=== PATIENT | female | born 1960 | race Caucasian/White ===

== ENCOUNTER 2017-02-27 10:11 | Inpatient (IN) | payer OTHER ==
[~2017-02-27] VITALS: Ht 165.1 cm; Wt 104.3 kg
[~2017-02-27 10:11] MED LIST: ACET-2863 PO; ALPR1TAB2 PO; BUS5 PO; CLOP75TA PO; IBUP-2213 PO; ISOS10TA9 PO; LISI10TA11 PO; SERT100T PO; SIMV40TA1 PO; SYN.05 PO
[2017-02-27 10:14] VITALS: BP 135/75
--- NOTE | 2017-02-27 10:35 | NUR ---
PT WHEELCHAIR ASSISTED TO BED 4 AT THIS TIME.
[2017-02-27] MEDS ORDERED: ASPIRIN 81 MG TAB.CHEW PO ONE (10:40)
[2017-02-27] MEDS ORDERED: NACL 0.9% 1,000 ML IV ONE (10:40)
--- NOTE | 2017-02-27 10:40 | NUR ---
56/F PRESENT TO ER C/O CHEST PAIN @ 0300 TODAY. PAIN 10/10 LEFT SIDED RADIATING TO BACK. PT STATES SHE HAD PR 2 MONTHS AGO.PATIENT HAS NAUSEA BUT DENIES V/D; SKIN IS PINK/WARM/DRY; AAOX4 WITH EVEN AND STEADY GAIT; LUNGS CLEAR BL; HR EVEN AND REGULAR; PT DENIES ANY FEVER, SOB, OR COUGH AT THIS TIME; VSS; PATIENT POSITIONED FOR COMFORT; HOB ELEVATED; BEDRAILS UP X2; BED DOWN. ER MD MADE AWARE OF PT STATUS. WILL CONTINUE TO MONITOR.
--- NOTE | 2017-02-27 10:40 | NUR ---
Note undone in EDM - 02/27/17 at 1402 by MEDPA 56/F PRESENT TO ER C/O CHEST PAIN @ 0300 TODAY. PAIN 10/10 LEFT SIDED RADIATING TO BACK. PT STATES SHE HAD TN 2 MONTHS AGO.PATIENT HAS NAUSEA BUT DENIES V/D; SKIN IS PINK/WARM/DRY; AAOX4 WITH EVEN AND STEADY GAIT; LUNGS CLEAR BL; HR EVEN AND REGULAR; PT DENIES ANY FEVER, CP, SOB, OR COUGH AT THIS TIME; VSS; PATIENT POSITIONED FOR COMFORT; HOB ELEVATED; BEDRAILS UP X2; BED DOWN. ER MD MADE AWARE OF PT STATUS. WILL CONTINUE TO MONITOR.
--- NOTE | 2017-02-27 10:40 | NUR ---
PT NOTED W/ SMALL BRUISE TO LEFT LOWER EXTREMITY; STATES FROM " YARD WORK"
--- NOTE | 2017-02-27 10:46 | NUR ---
XRAY AT BEDSIDE.
[2017-02-27] MEDS ORDERED: NITROGLYCERIN 2% 1 GM PKT TP ONE (10:50)
[2017-02-27] MEDS ORDERED: MORPHINE SULFATE 2 MG/ML SYR IVP ONE ×3 (11:05→13:25)
[2017-02-27] MEDS ORDERED: KETOROLAC 30 MG/ML VIAL IVP ONE (11:05)
[2017-02-27] MEDS ORDERED: PANTOPRAZOLE 40 MG INJ VIAL IVP ONE (11:05)
[2017-02-27 11:19] LABS: BASOPHILS # (AUTO) 0.1 K/uL (0.00-0.22); BASOPHILS % (AUTO) 1.7 % (0.0-2.0); EOSINOPHILS # (AUTO) 0.2 K/uL (0-0.4); EOSINOPHILS % (AUTO) 1.9 % (0.0-4.0); HEMATOCRIT 39.5 % (36-48); HEMOGLOBIN 12.8 g/dL (12.0-16.0); LYMPHOCYTES # (AUTO) 1.7 K/uL (2.5-16.5); LYMPHOCYTES % (AUTO) 21.5 % (20.5-51.1); MEAN CORPUSCULAR HEMOGLOBIN 30 pg (27-31); MEAN CORPUSCULAR HGB CONC 32 g/dL (33-37); MEAN CORPUSCULAR VOLUME 92 fL (80-94); MONOCYTES # (AUTO) 0.6 K/uL (0.8-1.0); MONOCYTES % (AUTO) 7.5 % (1.7-9.3); NEUTROPHILS # (AUTO) 5.4 K/uL (1.8-7.7); NEUTROPHILS % (AUTO) 67.4 % (42.2-75.2); PLATELET COUNT (AUTO) 227 K/uL (140-450); RED BLOOD CELL COUNT(AUTO) 4.28 MIL/uL (4.20-5.40); RED CELL DISTRIBUTION WIDTH 13.3 % (11.6-13.7)
[2017-02-27] MEDS ORDERED: METOPROLOL 25 MG TAB PO ONE (11:20)
[2017-02-27 11:37] LABS: ANION GAP 10.5 (8-16); CALCIUM 8.2 mg/dL (8.5-10.1); CARBON DIOXIDE 30.1 mmol/L (21-32); CREATININE 0.7 mg/dL (0.6-1.3); POTASSIUM 4.6 mmol/L (3.5-5.1)
[2017-02-27 11:38] LABS: INR 1.1 (0.8-1.2); PARTIAL THROMBOPLASTIN TIME 22.5 secs (22-35.6); PROTHROMBIN TIME 10.5 secs (10.8-13.4)
[2017-02-27 11:42] LABS: ALBUMIN 3.7 g/dL (3.4-5.0); TOTAL BILIRUBIN 0.4 mg/dL (0.0-1.0); TOTAL PROTEIN, SERUM 7.1 g/dL (6.4-8.2)
[2017-02-27] MEDS ORDERED: MORPHINE SULFATE 2 MG/ML SYR ONE (11:56)
[2017-02-27] MEDS ORDERED: ENOXAPARIN 100 MG/ML SYR SUBQ ONE (12:05)
[2017-02-27] MEDS ORDERED: NITROGLYCERIN 0.4 MG TAB SL PRN (12:30)
[2017-02-27] MEDS ORDERED: ONDANSETRON 4 MG/2 ML VIAL IVP PRN (12:30)
[2017-02-27] MEDS ORDERED: ZOLPIDEM 5 MG TAB PO PRN (12:30)
[2017-02-27] MEDS ORDERED: LOVENOX 1MG/KG Q12H SUBQ SCH (12:30)
[2017-02-27] MEDS ORDERED: KETOROLAC 30 MG/ML VIAL IVP PRN (12:30)
[2017-02-27] MEDS ORDERED: ACETAMINOPHEN 325 MG TAB PO PRN (12:30)
[2017-02-27] MEDS ORDERED: ATORVASTATIN 80 MG TAB PO ONE (12:50)
--- NOTE | 2017-02-27 12:58 | NUR ---
CALLED PHARMACY FOR LIPITOR ORDERED PER ER MD DR. ELAINE; PHARMACY TO BRING MEDICATION TO ER; PT APPEARS TO BE RESTING COMFORTABLY IN BED, RR EVEN/UNLABORED, WILL CONTINUE TO MONITOR.
--- NOTE | 2017-02-27 13:59 | NUR ---
PT ON ICU HOLD; UNABLE TO CALL REPORT NO BED AVAILABLE; PT APPEARS TO BE RESTING COMFORTABLY IN BED AT THIS TIME; RR EVEN/UNLABORED; WILL CONTINUE TO MONITOR.
--- NOTE | 2017-02-27 15:00 | NUR ---
LEFT MESSAGE AT [facility] FOR CARDIAC DIET FOOD TRAY FOR PT; PT STATES HUNGRY. ER MD DR. ELAINE NOTIFIED. WILL CONTINUE TO MONITOR AND FOLLOW UP.
--- NOTE | 2017-02-27 15:11 | NUR ---
Lynda billings in [facility] - 02/27/17 at 1511 by MARY XRAY AT BEDSIDE.
--- NOTE | 2017-02-27 15:20 | NUR ---
CARDIAC FOOD TRAY DIET PROVIDED TO PT AT THIS TIME.
--- NOTE | 2017-02-27 16:00 | NUR ---
Patient appears to be resting comfortably in bed. Vital Signs within normal limits. Respirations even and unlabored. WILL CONTINUE TO MONITOR.
--- NOTE | 2017-02-27 16:14 | NUR ---
DR. MAY EVALUATING PT AT BEDSIDE.
--- NOTE | 2017-02-27 16:51 | NUR ---
Patient will be admitted to care of DR. MAY . Admited to ICU. Will go to room ICU 4. Belongings list completed. DANG DURAN CONTINUING CARE OF PT IN ICU UNTIL PRIVATE ADVISOR ARRIVES FOR REPORT AND TRANSFER OF CARE OF PT. WILL CONTINUE TO MONITOR PT IN ICU UNTIL ICU NURSE ARRIVES.
--- NOTE | 2017-02-27 17:05 | NUR ---
PT TRANSFERRED TO BED ICU 4; PLACED ON MONITOR, CALL LIGHT IN REACH, POSITIONED FOR COMFORT; VSS AT THIS TIME; WILL CONTINUE TO MONITOR.
--- NOTE | 2017-02-27 17:36 | NUR ---
WATER AND BLANKET PROVIDED TO PT FOR COMFORT; VSS AT THIS TIME; WILL CONTINUE TO MONITOR.
--- NOTE | 2017-02-27 18:49 | NUR ---
REPORT GIVEN TO DANG LOU; TRANSFER OF CARE OF PT TO ICU 4 AT THIS TIME.
[2017-02-27 18:50] VITALS: BP 168/68
--- NOTE | 2017-02-27 18:50 | NUR ---
ADMITTED FROM ER THIS 56 YR. OLD WHITE FEMALE PER [facility]. BY ER NURSE WITH CC OF CHEST PAINS. AWAKE,ALERT, IV ON RT AC 0.9 NS AT 100 ML/HR. DENIES ANY SOB. IN SR WITHOUT ECTOPICS.
--- NOTE | 2017-02-27 19:00 | NUR ---
C/O SHARP PAINS OVER STERNUM, MID CHEST AND BELOW BREAST AREAS. 10/10 SCALE. REVIEWED MEDS ORDERED FOR HER BY DR. MAY. GOT UPSET. STATES SHE WANTS TO SIGN HERSELF OUT. UPSET THAT DR. MAY ONLY ORDERED 1MG. OF MORPHINE. STATES 1 MG DOES NOT HELP HER. EXPLAINED TO PT. THE IMPORTANCE OF STAYING IN THE HOSPITAL FOR HER CONDITION AND THAT I WILL CALL THE DR. RE: HER CONCERNS.
--- NOTE | 2017-02-27 19:15 | NUR ---
SPOKE TO DR. MISHAR ( BEHAVIORAL THERAPIST FOR DR. MAY ) RE: PT'S CONCERNS. PER DR. MISHRA HE IS NOT GOING TO CHANGE THE MED. ORDERS. HE IS ALSO AWARE THAT PT. WANTS TO SIGN AMA.
--- NOTE | 2017-02-27 19:30 | NUR ---
REPORT GIVEN TO DANG MENDOZA.
[2017-02-27 19:56] LABS: CREATINE KINASE MB 1.9 ng/mL (0-3.6)
[2017-02-27 20:00] VITALS: BP 166/92
--- NOTE | 2017-02-27 20:00 | NUR ---
RECEIVED PT IS AWAKE , ALERT SITING IN THE BED, EXPLAIN TO PT DOCTOR HE DO NOT WANT CHANGE PAIN MEDS DOSE YOU ASKING , IF YOU WANT IT , I WILL GIVE ORDER, WILL GIVE AFTER IV SITE FIXED IT, PT IS EXCEPT,C/O CHEST PAIN #10,MONITOR SR HR 66 RA O2 SAT 94%, IV AT RT AC ANGIO # 22 CHECK BLOOD RETURN , FLUSH WELL, TAPE FOR SECURITY., HAD MULTIPLE BRUISE ABDOMEN , LOWER LEG ,PT TOLD FOR BLOOD THIN MEDS
[2017-02-27] MEDS: METOPROLOL 25 MG TAB PO SCH (20:32)
[2017-02-27] MEDS: MORPHINE SULFATE 2 MG/ML SYR IVP PRN ×2 (20:34→23:27)
--- NOTE | 2017-02-27 20:35 | NUR ---
MORPHINE 1 MG IVP GIVEN ORDER
[2017-02-27] MEDS ORDERED: SIMVASTATIN 20 MG TAB PO SCH (21:00)
--- NOTE | 2017-02-27 21:13 | NUR ---
PLACED PT ON 2LNC WITH HUMIDIFICATION. PT STATES SHE HAS SLEEP APNEA. SATS ON RA WERE 90%.
[2017-02-27] MEDS: LORazepam 1 MG TAB PO PRN (21:17)
[2017-02-27 22:00] VITALS: BP 123/65
--- NOTE | 2017-02-27 22:00 | NUR ---
SLEPT FOR SHORT PERIOD AFTER MEDS PAIN DOWN 10 TO 2, TO COMMODE AT BEDSIDE VOIDED,C/O COULD NOT BREATH ,RT GAPPLIED O2 2 L/CN SAT 98 %, NO SOB NOTES
[2017-02-27] MEDS ORDERED: ENOXAPARIN 60 MG/0.6 ML SYR SUBQ ONE (23:51)
[2017-02-27] MEDS ORDERED: ENOXAPARIN 40 MG/0.4 ML SYR SUBQ ONE (23:52)
[2017-02-28] VITALS: BP 138/95
[2017-02-28] MEDS ORDERED: ENOXAPARIN 100 MG/ML SYR SUBQ SCH
--- NOTE | 2017-02-28 | NUR ---
SLEPT AFTER MORPHINE FOR PAIN SCALE 8 ,LOVENOX DOSE MIDNIGHT OKAY TO GIVEN BUT HOLD DOSE AM DR MARCELINO ORDER,MONITOR SR HR 67, NO DISTRESS
--- NOTE | 2017-02-28 01:56 | NUR ---
SLEPT SHORT TIME AFTER MEDS, AWAKE ASKING SOME THING TO EAT ,C/O HUNGRY CRACKLE , JUICE, SERVED , NO N/V NOTES
[2017-02-28 02:00] VITALS: BP 155/86
[2017-02-28] MEDS: LORazepam 1 MG TAB PO PRN ×2 (02:42→07:43)
--- NOTE | 2017-02-28 02:58 | NUR ---
AWAKE, WANT RESTLESS WANT SOMETHING FOR SLEEP AGAIN, ATIVAN GIVEN AGAIN ORDER.
[2017-02-28 04:00] VITALS: BP 135/85
[2017-02-28 05:10] LABS: BASOPHILS # (AUTO) 0.1 K/uL (0.00-0.22); BASOPHILS % (AUTO) 1.4 % (0.0-2.0); EOSINOPHILS # (AUTO) 0.3 K/uL (0-0.4); EOSINOPHILS % (AUTO) 4.1 % (0.0-4.0); HEMATOCRIT 35.4 % (36-48); HEMOGLOBIN 11.4 g/dL (12.0-16.0); LYMPHOCYTES # (AUTO) 2.1 K/uL (2.5-16.5); LYMPHOCYTES % (AUTO) 32.4 % (20.5-51.1); MEAN CORPUSCULAR HEMOGLOBIN 30 pg (27-31); MEAN CORPUSCULAR HGB CONC 32 g/dL (33-37); MEAN CORPUSCULAR VOLUME 92 fL (80-94); MONOCYTES # (AUTO) 0.5 K/uL (0.8-1.0); MONOCYTES % (AUTO) 7.1 % (1.7-9.3); NEUTROPHILS # (AUTO) 3.5 K/uL (1.8-7.7); PLATELET COUNT (AUTO) 194 K/uL (140-450); RED BLOOD CELL COUNT(AUTO) 3.84 MIL/uL (4.20-5.40); RED CELL DISTRIBUTION WIDTH 13.3 % (11.6-13.7); WHITE BLOOD COUNT (AUTO) 6.5 K/uL (4.8-10.8)
[2017-02-28 05:46] LABS: ANION GAP 9.2 (8-16); CALCIUM 7.6 mg/dL (8.5-10.1); CARBON DIOXIDE 30.1 mmol/L (21-32); CREATININE 0.8 mg/dL (0.6-1.3); POTASSIUM 4.3 mmol/L (3.5-5.1)
[2017-02-28 06:00] VITALS: BP 176/94
--- NOTE | 2017-02-28 06:59 | NUR ---
C/O BACK ,CHEST PAIN TORADOL GIVEN ,C/O DID NOT HELP, BUT MORPHINE ORDER X2 DOSE ONLY, MONITOR SR HR 66,UP TO COMMODE AT BED SIDE ,NO DISTRESS.
--- NOTE | 2017-02-28 07:15 | NUR ---
RECEIVED REPORT FROM DANG MENDOZA. PT SEEN AT BEDSIDE; AAOX4. ON ROOM AIR WITH NO S/S SOB. PT IS ON EXPERIMENTAL MECHANIC ELECTRICAL RUNNING SINUS RHYTHM TO SINUS JULIET. PT C/O CHEST PAIN, WAS MEDICATED WITH TORADOL AT 0642. PT HAS LEFT AC 22G IV RUNNING IVF AT [facility]. BRUISE NOTED ON ABD. PT IS ON BLOOD THINNERS AND RECEIVED LOVENOX ON ABD DURING THE NIGHT. PT SKIN IS INTACT; AMBULATORY WITH BSC AT BEDSIDE. SAFETY MEASURES CHECKED, CALL LIGHT LEFT AT BEDSIDE. WILL CONTINUE TO MONITOR.
--- NOTE | 2017-02-28 07:30 | NUR ---
PATIENT HAS BEEN SCREENED AND CATEGORIZED MODERATE NUTRITION RISK. PATIENT WILL BE SEEN WITHIN 3-5 DAYS OF ADMISSION. 03/02/17-03/04/[address]
--- NOTE | 2017-02-28 07:30 | NUR ---
RECEIVED CALL FROM DR. MARCELINO. UPDATED MD ON PATIENT CONDITION. PT WILL BE GOING TO [facility] FOR ANGIOGRAM AT 9:30AM TODAY. HOLD LOVENOX AND LOPRESSOR FOR TODAY. GIVE COZAAR; OK TO GIVE PLAVIX AND ASPIRIN. FAX FACE SHEET TO [phone] AND GET STENT REPORT FROM [facility]. WILL FOLLOW UP WITH ORDERS.
--- NOTE | 2017-02-28 07:38 | NUR ---
FAXED FACESHEET TO [facility] FOR DR. MARCELINO.
[2017-02-28] MEDS ORDERED: LOSARTAN 50 MG TAB PO SCH (07:45)
[2017-02-28 07:46] VITALS: BP 160/91
[2017-02-28 08:00] VITALS: BP 160/91
[2017-02-28] MEDS ORDERED: ALPRAZolam 0.5 MG TAB PO SCH (08:05)
[2017-02-28] MEDS ORDERED: HYDROcodone/APAP 7.5/325 MG 1 TAB PO SCH (08:05)
[2017-02-28] MEDS ORDERED: IBUPROFEN 600 MG TAB PO PRN (08:05)
[2017-02-28] MEDS ORDERED: ACET-2619 PO (08:10)
[2017-02-28] MEDS ORDERED: ASPI81CT80 PO ×2 (08:11→08:12)
[2017-02-28] MEDS ORDERED: CLOP75TA5 PO (08:12)
[2017-02-28] MEDS ORDERED: LOV100I SQ (08:13)
[2017-02-28] MEDS ORDERED: LORA2SOL69 PO (08:15)
[2017-02-28] MEDS ORDERED: KETO10SO OP (08:15)
[2017-02-28] MEDS ORDERED: METO25TA3 PO (08:16)
[2017-02-28] MEDS ORDERED: [UNRECOGNIZED DRUG - CODE] TD (08:17)
[2017-02-28] MEDS ORDERED: NITR0.3T SL (08:18)
[2017-02-28] MEDS ORDERED: [UNRECOGNIZED DRUG - CODE] IVP (08:19)
[2017-02-28] MEDS ORDERED: SIMV20TA6 PO (08:20)
[2017-02-28] MEDS ORDERED: ZOLP10TA6 PO (08:20)
[2017-02-28] MEDS ORDERED: LOSA50TA39 PO (08:21)
[2017-02-28] MEDS: METOPROLOL 25 MG TAB PO SCH (08:22)
--- NOTE | 2017-02-28 08:32 | NUR ---
ROUTINE MEDICATIONS GIVEN WITH EDUCATION. NITRO PATCH APPLIED ON RIGHT ANTERIOR CHEST. PT VERBALIZED UNDERSTANDING.
--- NOTE | 2017-02-28 08:45 | NUR ---
RECEIVED CALLBACK FROM DR MAY INFORMING HIM OF TRANSFER TO [facility] FOR ANGIOGRAM BY DR. MARCELINO. DR MAY WILL BE THE ACCEPTING DR FOR [facility] ALSO. NOTIFIED MED REC IS NOT DONE. RECEIVED ORDERS FOR MED RECS-WHICH MEDS TO CONTINUE AND WHICH ONES TO D/C.
--- NOTE | 2017-02-28 08:47 | NUR ---
CALLED PATIENT'S MOTHER; DID NOT ANSWER THE PHONE, MESSAGE LEFT. PER PT REQUEST, CALLED HER AUNT, GLORY, AND NOTIFIED HER THAT PATIENT WILL BE TRANSFERRING TO [facility] FOR ANGIOGRAM.
[2017-02-28] MEDS ORDERED: busPIRone 5 MG TAB PO SCH (09:00)
[2017-02-28] MEDS ORDERED: LEVOTHYROXINE 0.05 MG TAB PO SCH (09:00)
[2017-02-28] MEDS ORDERED: ASPIRIN 325 MG TAB PO SCH (09:00)
[2017-02-28] MEDS ORDERED: ISOSORBIDE DINITRATE 10 MG TAB PO SCH (09:00)
[2017-02-28] MEDS ORDERED: SERTRALINE 50 MG TAB PO SCH (09:00)
[2017-02-28] MEDS ORDERED: LISINOPRIL 10 MG TAB PO SCH (09:00)
[2017-02-28] MEDS ORDERED: ASPIRIN 81 MG TAB.CHEW PO SCH ×2 (09:00)
[2017-02-28] MEDS ORDERED: CLOPIDOGREL 75 MG TAB PO SCH ×2 (09:00)
[2017-02-28] MEDS ORDERED: NITROGLYCERIN 0.4 MG/HR PATCH TD SCH (09:00)
--- NOTE | 2017-02-28 09:00 | NUR ---
DR MAY AT BEDSIDE TALKING TO PATIENT.
--- NOTE | 2017-02-28 09:08 | NUR ---
FAXED INITIAL REVIEW TO [facility] [phone] PHONE SHANNA [phone] PATIENT TO GO TO [facility] FOR ANGIOGRAM SPOKE WITH ROHINI AT [facility] CR[employer]HER [employer] AND FAXED INFORMATION TO HER AND THE ORDER FOR THE ANGIOGRAM. THE ANGIO IS SCHEDULED FOR 12:30PM, AND WAS TOLD I COULD SEND THE PATIENT ANY TIME. SPOKE WITH SHANNA AT [facility] FOR AUTHS. THE AUTH FOR TRANSPORT IS [id number], I CALLED [facility] AND SET UP TRANSPORT TIME FOR 9:30A.M. WAITING AUTH FOR [facility]. AUTH FOR [facility] IS [id number]. CALLED [facility] AND SPOKE WITH ROHINI AND GAVE HER THE AUTH.
--- NOTE | 2017-02-28 09:15 | NUR ---
CALLED [facility], TO GIVE REPORT.
--- NOTE | 2017-02-28 09:30 | NUR ---
[facility] CALLED BY DANG LIGHT. PER [facility], THEY HAVE AUTHORIZATION.
--- NOTE | 2017-02-28 09:50 | NUR ---
[facility] AT BEDSIDE. REPORT GIVEN AND PT PLACED ON GURNEY. PT PLACED ON FOOTBALL SCOUT BY [facility]. PT OFF FLOOR TO TRANSFER TO [facility].
[2017-02-28] MEDS ORDERED: SIMVASTATIN 40 MG TAB PO SCH (21:00)
== END 2017-02-28 09:50 | disposition short-term general hospital (02) | DRG 190 ==
LOC: MED 10:11 → MIC 12:18
PROVIDERS: ADMIT Hospitalist; ATTEND Hospitalist
DX: I21.4 Non-ST elevation (NSTEMI) myocardial infarction (principal); I73.9 Peripheral vascular disease, unspecified; E83.51 Hypocalcemia; I10 Essential (primary) hypertension; R73.03 Prediabetes; I25.119 Atherosclerotic heart disease of native coronary artery with unspecified angina pectoris; F32.9 Major depressive disorder, single episode, unspecified; J45.909 Unspecified asthma, uncomplicated; F41.9 Anxiety disorder, unspecified; E78.5 Hyperlipidemia, unspecified; Z91.09 Other allergy status, other than to drugs and biological substances; I25.2 Old myocardial infarction; Z95.5 Presence of coronary angioplasty implant and graft; Z87.891 Personal history of nicotine dependence; Z88.7 Allergy status to serum and vaccine; Z85.41 Personal history of malignant neoplasm of cervix uteri; Z72.89 Other problems related to lifestyle
CPT/HCPCS: 36415; 71010; 80048; 80053; 82550; 82553; 83735; 84484; 85025; 85610; 85730; 87081; 93005; 99285; C9113; J1650; J1885; J2270; J7030; Q0092

== ENCOUNTER 2017-04-06 15:21 | Emergency (ER) | payer OTHER ==
[~2017-04-06] VITALS: Ht 165.1 cm; Wt 100.7 kg
[~2017-04-06 15:21] MED LIST changes: -ACET-2863 PO; -ALPR1TAB2 PO; -BUS5 PO; +BUSPAR5 MG PO; -CLOP75TA PO; -IBUP-2213 PO; +ISORDIL10 M1 PO; -ISOS10TA9 PO; +KETOROLAC TROME10 ML OP; -LISI10TA11 PO; +LORAZEPAM PO; +LOSARTAN POTASS50 MG PO; +METOPROLOL25 MG PO; +MOTRIN600 MG PO; +NITRO-DUR0.4 MG/HR TD; +NITROSTAT0.3 M1 SL; +NORCO 325 MG-7.1 TAB PO; +NOVAPLUS LO SQ; +PLAVIX75 M1 PO; +PLAVIX75 MG PO; -SERT100T PO; -SIMV40TA1 PO; +SIMVASTATIN20 M1 PO; -SYN.05 PO; +SYNTHROID0.05 MG PO; +TOPCARE ASPIRIN81 M1 PO; +TYLENOL325 M2 PO; +XANAX1 MG PO; +ZESTRIL10 MG PO; +ZOCOR40 MG PO; +ZOLOFT100 MG PO; +ZOLPIDEM10 M1 PO; +[UNRECOGNIZED DRUG - OTHER] IVP
[2017-04-06 15:22] VITALS: BP 129/66
--- NOTE | 2017-04-06 15:51 | NUR ---
PATIENT IS A 56 YO FEMALE BIB SELF AMBULATING C/O CHEST PAIN, SEEN IMMEDIATLY IN TRIAGE AND 12 LEAD EKG DONE. VITALS ARE PER TRIAGE SHEET. PATIENT APPEARS ALTERED, WHEN QUESTIONED ADMITTED TO USING XANAX AND ALCOHOL. WHEN TOLD HER EKG WAS CLEAR SHE INSISTED ON LEAVING. I TOLD SHE WAS TOO INTOXICATED TO DRIVE DID SHE HAVE SOMEONE WHO COULD PICK HER UP. I THEN CALLED [facility] AND INFORMED THEM, PATIENT INSISTED ON LEAVING AND WALKED TO HER CAR, AND DROVE OFF.
== END 2017-04-06 15:51 | disposition left against medical advice (07) ==
LOC: MED 15:21
DX: R07.89 Other chest pain (principal); Z53.21 Procedure and treatment not carried out due to patient leaving prior to being seen by health care provider

== ENCOUNTER 2017-05-08 17:42 | Emergency (ER) | payer OTHER ==
[~2017-05-08] VITALS: Ht 170.2 cm; Wt 127.0 kg
[~2017-05-08 17:42] MED LIST changes: +ACET-2619 PO; +ACET-2863 PO; +ALPR1TAB2 PO; +ASPI81CT80 PO; +BUS5 PO; -BUSPAR5 MG PO; +CLOP75TA5 PO; +IBUP-2213 PO; -ISORDIL10 M1 PO; +ISOS10TA9 PO; +KETO10SO OP; -KETOROLAC TROME10 ML OP; +LISI10TA11 PO; +LORA2SOL69 PO; -LORAZEPAM PO; +LOSA50TA39 PO; -LOSARTAN POTASS50 MG PO; +LOV100I SQ; +METO25TA3 PO; -METOPROLOL25 MG PO; -MOTRIN600 MG PO; +NITR0.3T SL; -NITRO-DUR0.4 MG/HR TD; -NITROSTAT0.3 M1 SL; -NORCO 325 MG-7.1 TAB PO; -NOVAPLUS LO SQ; -PLAVIX75 M1 PO; -PLAVIX75 MG PO; +SERT100T PO; +SIMV20TA6 PO; -SIMVASTATIN20 M1 PO; +SYN.05 PO; -SYNTHROID0.05 MG PO; -TOPCARE ASPIRIN81 M1 PO; -TYLENOL325 M2 PO; -XANAX1 MG PO; -ZESTRIL10 MG PO; -ZOCOR40 MG PO; -ZOLOFT100 MG PO; +ZOLP10TA6 PO; -ZOLPIDEM10 M1 PO; +[UNRECOGNIZED DRUG - CODE] IVP; +[UNRECOGNIZED DRUG - CODE] TD; -[UNRECOGNIZED DRUG - OTHER] IVP
[2017-05-08 17:46] VITALS: BP 127/65
[2017-05-08] MEDS ORDERED: NACL 0.9% 1,000 ML IV ONE (18:00)
--- NOTE | 2017-05-08 18:20 | NUR ---
Pt placed in overflow by EMS.
--- NOTE | 2017-05-08 18:26 | NUR ---
Patient being evaluated by Dr. Ross in overflow.
[2017-05-08 18:46] LABS: BASOPHILS # (AUTO) 0.1 K/uL (0.00-0.22); BASOPHILS % (AUTO) 1.4 % (0.0-2.0); EOSINOPHILS # (AUTO) 0.2 K/uL (0-0.4); EOSINOPHILS % (AUTO) 2.1 % (0.0-4.0); HEMATOCRIT 42.3 % (36-48); HEMOGLOBIN 14.1 g/dL (12.0-16.0); LYMPHOCYTES % (AUTO) 27.3 % (20.5-51.1); MEAN CORPUSCULAR HEMOGLOBIN 32 pg (27-31); MEAN CORPUSCULAR HGB CONC 34 g/dL (33-37); MEAN CORPUSCULAR VOLUME 94 fL (80-94); MONOCYTES # (AUTO) 0.5 K/uL (0.8-1.0); NEUTROPHILS # (AUTO) 4.4 K/uL (1.8-7.7); NEUTROPHILS % (AUTO) 62.2 % (42.2-75.2); PLATELET COUNT (AUTO) 276 K/uL (140-450); RED BLOOD CELL COUNT(AUTO) 4.49 MIL/uL (4.20-5.40); RED CELL DISTRIBUTION WIDTH 12.7 % (11.6-13.7); WHITE BLOOD COUNT (AUTO) 7.2 K/uL (4.8-10.8)
[2017-05-08 18:58] LABS: ANION GAP 12.7 (8-16); CALCIUM 8.6 mg/dL (8.5-10.1); CARBON DIOXIDE 28.7 mmol/L (21-32); CHLORIDE 107 mmol/L (98-107); CREATININE 0.7 mg/dL (0.6-1.3); GFR ARICAN-AMERICAN 112 mL/min (>90); GFR NON ARICAN-AMERICAN 92 mL/min (>90); GLUCOSE 118 mg/dL (74-106); POTASSIUM 4.4 mmol/L (3.5-5.1); SODIUM SERUM 144 mmol/L (136-145); UREA NITROGEN, BLOOD 14 mg/dL (7-18)
[2017-05-08 19:12] LABS: ACETAMINOPHEN < 0.5 ug/ml (10-30); ALANINE AMINOTRANSFERASE 68 U/L (12-78); ALBUMIN 3.8 g/dL (3.4-5.0); ALCOHOL, BLOOD 67 mg/dL (<3); ALKALINE PHOSPHATASE 85 U/L (46-116); ASPARTATE AMINOTRANSFERASE 65 U/L (15-37); SALICYLATE < 2.8 mg/dL (2.8-20.0); TOTAL BILIRUBIN 0.4 mg/dL (0.0-1.0); TOTAL PROTEIN, SERUM 7.7 g/dL (6.4-8.2)
--- NOTE | 2017-05-08 19:27 | NUR ---
PT RETURN FROM CT TO BED 7
--- NOTE | 2017-05-08 19:36 | NUR ---
Dr. Adames evaluating patient at bedside.
--- NOTE | 2017-05-08 19:40 | NUR ---
OK PER DR HONG TO HOLD OFF ON STARTING IV UNTIL LABS COME BACK.
--- NOTE | 2017-05-08 19:44 | NUR ---
PATIENT PRESENTS TO ED WITH C/O ALOC. BIBA. . PT DENIES N/V/D; SKIN IS PINK/WARM/DRY; LUNGS CLEAR BL; HR EVEN AND REGULAR; PT DENIES ANY FEVER, CP, SOB, OR COUGH AT THIS TIME; PATIENT STATES PAIN OF 0/10 AT THIS TIME; VSS; PATIENT POSITIONED FOR COMFORT; HOB ELEVATED; BEDRAILS UP X2; BED DOWN. ER MD MADE AWARE OF PT STATUS.
[2017-05-08] MEDS ORDERED: IBUPROFEN 600 MG TAB PO ONE (20:40)
[2017-05-08 20:41] LABS: BILIRUBIN,URINE NEGATIVE (NEGATIVE); BLOOD, URINE TRACE-I (NEGATIVE); COLOR,URINE YELLOW (YELLOW); LEUKOCYTE ESTERASE ,URINE 2+ (NEGATIVE); NITRITE, URINE POSITIVE (NEGATIVE); PROTEIN,URINE NEGATIVE (NEGATIVE); UGLUCOSE NEGATIVE (NEGATIVE); UROBILINOGEN,URINE 0.2 EU/dL (0.2 - 1)
[2017-05-08 20:48] LABS: APPEARANCE,URINE CLOUDY (CLEAR)
[2017-05-08 20:58] VITALS: BP 124/66
[2017-05-08 21:04] LABS: BACTERIA,URINE 4+ /HPF (None Seen); RBC,URINE 0-5 (RARE) /HPF (0-5); SQUAMOUS EPITHELIAL CELL,UR FEW /LPF (0-3 (FEW)); YEAST,URINE Moderate /HPF (None Seen)
[2017-05-08 21:21] LABS: AMPHETAMINE, URINE NEG. ng/ml (NEG <=1000); BARBITURATE, URINE NEG. ng/ml (NEG <=200); BENZODIAZEPINE, URINE POS. ng/mL (NEG <=200); CANNABINOID, URINE NEG. ng/mL (NEG <=50); COCAINE, URINE NEG. ng/mL (NEG <=300); OPIATE, URINE NEG. ng/mL (NEG <=2000); PHENCYCLIDINE SCREEN,URINE NEG. ng/mL (NEG <=25)
== END 2017-05-08 20:59 | disposition home or self-care (01) ==
LOC: MED 17:42
DX: N39.0 Urinary tract infection, site not specified (principal); F41.9 Anxiety disorder, unspecified; R07.9 Chest pain, unspecified; J45.909 Unspecified asthma, uncomplicated; I10 Essential (primary) hypertension; Z91.010 Allergy to peanuts; Z85.9 Personal history of malignant neoplasm, unspecified
CPT/HCPCS: 36415; 70450; 80053; 80305; 81001; 83880; 84484; 85025; 87040; 87086; 87186; 93005; 99285; G0480; G0482

== ENCOUNTER 2017-11-12 18:52 | Emergency (ER) | payer OTHER ==
[~2017-11-12] VITALS: Ht 167.6 cm; Wt 107.0 kg
[~2017-11-12 18:52] MED LIST changes: +ASPI-1677 PO; -ASPI81CT80 PO; +CLOP75TA26 PO; -CLOP75TA5 PO; +METO25TA14 PO; -METO25TA3 PO
--- NOTE | 2017-11-12 18:52 | NUR ---
Patient was BIBA and taken to bed 02 via gurney.
[2017-11-12 18:55] VITALS: BP 143/67
--- NOTE | 2017-11-12 19:00 | NUR ---
PATIENT IS A 57 Y/O FEMALE WHO PRESENTS TO THE ED C/O CHEST PAIN. PT STATES, "I HAVE BEEN HAVING CHEST PAIN FOR ABOUT 3-4 WEEKS." PT REPORTS 9/10 SHARP CHEST PAIN THAT DOES NOT RADIATE. PT DENIES SOB, REPORTS NAUSEA, DENIES VOMITING/DIARRHEA. PT AAOX4, RR EVEN/UNLABORED. PT REPOSITIOED FOR COMFORT, BED IN LOWEST POSITION. ER MD DR. HONG NOTIFIED. WILL CONTINUE TO MONITOR.
[2017-11-12] MEDS ORDERED: NACL 0.9% 1,000 ML IV ONE (19:27)
[2017-11-12] MEDS ORDERED: MORPHINE SULFATE 4 MG/ML SYR IVP ONE (19:30)
[2017-11-12] MEDS ORDERED: ONDANSETRON 4 MG/2 ML VIAL IVP ONE (19:30)
--- NOTE | 2017-11-12 19:48 | NUR ---
X-Ray at bedside.
[2017-11-12 20:20] LABS: HEMATOCRIT 43.3 % (36-48); HEMOGLOBIN 14.1 g/dL (12.0-16.0); MEAN CORPUSCULAR HEMOGLOBIN 30 pg (27-31); MEAN CORPUSCULAR HGB CONC 33 g/dL (33-37); MEAN CORPUSCULAR VOLUME 91 fL (80-94); PLATELET COUNT (AUTO) 267 K/uL (140-450); RED BLOOD CELL COUNT(AUTO) 4.75 MIL/uL (4.20-5.40); WHITE BLOOD COUNT (AUTO) 6.4 K/uL (4.8-10.8)
[2017-11-12 20:22] LABS: APPEARANCE,URINE CLEAR (CLEAR); BILIRUBIN,URINE NEGATIVE (NEGATIVE); BLOOD, URINE NEGATIVE (NEGATIVE); COLOR,URINE YELLOW (YELLOW); LEUKOCYTE ESTERASE ,URINE TRACE (NEGATIVE); NITRITE, URINE NEGATIVE (NEGATIVE); PH,URINE 5.5 (5.0-9.0); UGLUCOSE NEGATIVE (NEGATIVE)
[2017-11-12 20:22] LABS: ANION GAP 12.6 (8-16); CARBON DIOXIDE 29.8 mmol/L (21-32); CREATININE 0.7 mg/dL (0.6-1.3); POTASSIUM 4.4 mmol/L (3.5-5.1)
[2017-11-12 20:27] LABS: ALBUMIN 3.4 g/dL (3.4-5.0); TOTAL BILIRUBIN 0.3 mg/dL (0.0-1.0)
[2017-11-12 20:33] LABS: RBC,URINE 0-5 (RARE) /HPF (0-5)
[2017-11-12 20:44] LABS: EOSINOPHILS % (MANUAL) 1 % (0-4); LYMPHOCYTES % (MANUAL) 33 % (20-46); MONOCYTES % (MANUAL) 6 % (5-12)
[2017-11-12 21:31] VITALS: BP 137/72
--- NOTE | 2017-11-12 21:31 | NUR ---
Patient discharged with v/s stable. Written and verbal after care instructions given and explained. Patient alert, oriented and verbalized understanding of instructions. Ambulatory with steady gait. All questions addressed prior to discharge. ID band removed. Patient advised to follow up with PMD. Rx of TYLENOL AD CIPRO given. Patient educated on indication of medication including possible reaction and side effects. Opportunity to ask questions provided and answered.
== END 2017-11-12 21:31 | disposition home or self-care (01) ==
LOC: MED 18:52
DX: N39.0 Urinary tract infection, site not specified (principal); R07.89 Other chest pain; R19.7 Diarrhea, unspecified; I10 Essential (primary) hypertension; Z79.899 Other long term (current) drug therapy; Z79.82 Long term (current) use of aspirin; Z90.710 Acquired absence of both cervix and uterus; Z88.8 Allergy status to other drugs, medicaments and biological substances; Z91.018 Allergy to other foods
CPT/HCPCS: 36415; 71010; 80053; 81001; 81025; 83690; 84484; 85025; 87086; 93005; 96361; 96374; 96375; 99285; J2270; J2405; J7030; Q0092; 87186

== ENCOUNTER 2018-03-24 08:55 | Emergency (ER) | payer OTHER ==
[~2018-03-24] VITALS: Ht 167.6 cm; Wt 104.3 kg
[2018-03-24 08:59] VITALS: BP 154/85
[2018-03-24 09:05] VITALS: BP 154/85
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
--- NOTE | 2018-03-24 09:09 | NUR ---
Patient ambulated to bed 12. RN evaluating patient at bedside.
[2018-03-24] MEDS ORDERED: KETOROLAC 60 MG/2 ML VIAL IM ONE (09:25)
[2018-03-24] MEDS ORDERED: ACETAMINOPHEN EXTRA STRENGTH 500 MG TAB PO ONE (09:40)
--- NOTE | 2018-03-24 09:40 | NUR ---
PATIENT DECLINED TORADOL, STATED SHE CANNOT TAKE IT BECAUSE OF HER HEART CONDITION. Sheree STATED SHE WANTS DEMEROL BECAUSE ITS THE ONLY THING THAT WORKS. I ADVISED WE DO NOT HAVE DEMEROL BUT WOULD ASK THE DOCTOR WHAT THE NEXT BEST THING IS. DOCTOR ORDERED TYLENOL, SHEREE REFUSED, SATATED SHE HAS CODIENE AT HOME. PATIENT REFUSED TO STAY FOR FURTHER EVALUATION AND LEFT ER AMB AMA. DOCTOR SILVERIO WAS MADE AWARE OF PATIENTS ACTIONS.
== END 2018-03-24 09:40 | disposition home or self-care (01) ==
LOC: MED 08:55
DX: S80.12XA Contusion of left lower leg, initial encounter (principal); S00.81XA Abrasion of other part of head, initial encounter; I25.2 Old myocardial infarction; I10 Essential (primary) hypertension; Z79.82 Long term (current) use of aspirin; Y04.8XXA Assault by other bodily force, initial encounter; Y93.89 Activity, other specified; Y92.89 Other specified places as the place of occurrence of the external cause; Y99.8 Other external cause status
CPT/HCPCS: 93005; 99283; J1885

== ENCOUNTER 2018-05-20 14:02 | Inpatient (IN) | payer OTHER ==
[~2018-05-20] VITALS: Ht 167.6 cm; Wt 101.6 kg
--- NOTE | 2018-05-20 14:02 | NUR ---
Patient BIBA ACLS, triaged by RN. Waiting for an available bed.
[2018-05-20 14:09] VITALS: BP 122/77
--- NOTE | 2018-05-20 14:12 | NUR ---
Patient transferred to bed 10 for further care. RN evaluating patient at bedside.
[2018-05-20] MEDS ORDERED: NITROGLYCERIN 2% 1 GM PKT TP ONE (14:15)
[2018-05-20] MEDS ORDERED: KETOROLAC 30 MG/ML VIAL IVP ONE (14:15)
--- NOTE | 2018-05-20 14:29 | NUR ---
TORADOL 30MG IVP NOT GIVEN,PATIENT STATED CAN NOT TAKE TORADOL. DR. LUNA WILL CHANGE MED. ORDER
[2018-05-20 14:40] LABS: BASOPHILS # (AUTO) 0.1 K/uL (0.00-0.22); EOSINOPHILS # (AUTO) 0.3 K/uL (0-0.4); EOSINOPHILS % (AUTO) 3.8 % (0.0-4.0); HEMATOCRIT 37.3 % (36-48); HEMOGLOBIN 12.5 g/dL (12.0-16.0); LYMPHOCYTES # (AUTO) 1.3 K/uL (2.5-16.5); MEAN CORPUSCULAR HEMOGLOBIN 32 pg (27-31); MEAN CORPUSCULAR HGB CONC 34 g/dL (33-37); MEAN CORPUSCULAR VOLUME 93.8 fL (80-94); MONOCYTES # (AUTO) 0.5 K/uL (0.8-1.0); MONOCYTES % (AUTO) 6.9 % (1.7-9.3); NEUTROPHILS # (AUTO) 4.5 K/uL (1.8-7.7); NEUTROPHILS % (AUTO) 68.3 % (42.2-75.2); PLATELET COUNT (AUTO) 296 K/uL (140-450); RED BLOOD CELL COUNT(AUTO) 3.97 MIL/uL (4.20-5.40); WHITE BLOOD COUNT (AUTO) 6.6 K/uL (4.8-10.8)
[2018-05-20 14:45] LABS: ANION GAP 11.9 (8-16); CARBON DIOXIDE 29.1 mmol/L (21-32)
[2018-05-20 14:50] LABS: ALBUMIN 3.3 g/dL (3.4-5.0); TOTAL BILIRUBIN 0.5 mg/dL (0.0-1.0)
[2018-05-20 14:55] LABS: PROTHROMBIN TIME 10.3 secs (10.8-13.4)
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
[2018-05-20] MEDS ORDERED: MORPHINE SULFATE 4 MG/ML SYR IVP ONE ×2 (15:15→18:20)
[2018-05-20] MEDS ORDERED: CLOPIDOGREL 75 MG TAB PO ONE (15:15)
--- NOTE | 2018-05-20 17:02 | NUR ---
AWAKE ALERT HOLDING FULL CLEAR CONVERSATION OVER PHONE . NO GRIMACE NO MOAN PER MD POSS TRANSFER TO [facility] WHERE PT HAS PRIMARY CARE
[2018-05-20] MEDS ORDERED: ALPRAZolam 0.5 MG TAB PO PRN (17:45)
[2018-05-20] MEDS ORDERED: ZOLPIDEM 5 MG TAB PO PRN (17:55)
[2018-05-20 18:39] LABS: APPEARANCE,URINE CLEAR (CLEAR); BILIRUBIN,URINE NEGATIVE (NEGATIVE); BLOOD, URINE NEGATIVE (NEGATIVE); COLOR,URINE ORANGE (YELLOW); LEUKOCYTE ESTERASE ,URINE NEGATIVE (NEGATIVE); NITRITE, URINE NEGATIVE (NEGATIVE); UGLUCOSE NEGATIVE (NEGATIVE)
[2018-05-20 18:46] LABS: BARBITURATE, URINE NEG. ng/ml (NEG <=200); BENZODIAZEPINE, URINE POS. ng/mL (NEG <=200); CANNABINOID, URINE NEG. ng/mL (NEG <=50); COCAINE, URINE NEG. ng/mL (NEG <=300); OPIATE, URINE POS. ng/mL (NEG <=2000); PHENCYCLIDINE SCREEN,URINE NEG. ng/mL (NEG <=25)
--- NOTE | 2018-05-20 18:56 | NUR ---
MEDICATED FOR CP---PT SMILING , HOLDING CONVERSATION IN LENGTH WITH ME DURING TRANSPORT. ADMITS PAIN IS DIMINISHING, DENIES NAUSEA AT THIS TIME.
--- NOTE | 2018-05-20 18:58 | NUR ---
Pt transferred to Tele via [facility] RM 124-B REPORT GIVEN TO MARCELLE LEONG
[2018-05-20 19:00] VITALS: BP 125/68
--- NOTE | 2018-05-20 19:00 | NUR ---
PT ARRIVED ON UNIT VIA GURNEY FROM ER. RECEIVED REPORT FROM ER NURSE. AWAKE,ALERT AND ORIENTED X4. PT CC CHEST PAIN AND DX IS CHEST PAIN. IV IN L HAND 22G SALINE LOCKED. IV PATENT. PT ON NC 2L. SKIN IS INTACT. NO COMPLAINTS OF PAIN AT THIS TIME. BED IS IN LOW POSITION, LOCKED WITH SIDE RAILS UP X2. WILL CONTINUE TO MONITOR.
[2018-05-20] MEDS: busPIRone 5 MG TAB PO SCH (21:24)
[2018-05-20] MEDS: METOPROLOL 50 MG TAB PO SCH (21:25)
[2018-05-20] MEDS: SIMVASTATIN 20 MG TAB PO SCH (21:25)
[2018-05-20] MEDS: ENOXAPARIN 100 MG/ML SYR SUBQ SCH (21:27)
--- NOTE | 2018-05-20 21:30 | NUR ---
ADMINISTERED NIGHT TIME MEDS TO PT. PT TOLERATED WELL. NO S/SX OF DISTRESS. WILL CONTINUE TO MONITOR.
[2018-05-20] MEDS: MORPHINE SULFATE 2 MG/ML SYR IVP PRN (21:33)
[2018-05-20 22:48] LABS: CREATINE KINASE MB 0.9 ng/mL (0-3.6)
--- NOTE | 2018-05-20 23:00 | NUR ---
PT ASLEEP COMFORTABLY IN BED. NO S/SX OF DISTRESS. WILL CONTINUE TO MONITOR.
[2018-05-21] VITALS: BP 118/43
--- NOTE | 2018-05-21 00:05 | NUR ---
VS WITHIN NORMAL LIMITS. ALL PT NEEDS ARE MET AT THIS TIME. PT IS BACK ASLEEP. WILL CONTINUE TO MONITOR.
[2018-05-21] MEDS: MORPHINE SULFATE 2 MG/ML SYR IVP PRN ×3 (02:47→19:47)
[2018-05-21] MEDS: ONDANSETRON 4 MG/2 ML VIAL IVP PRN (02:47)
--- NOTE | 2018-05-21 02:48 | NUR ---
L HAND IV NO LONGER PATENT. NEW IV STARTED R HAND 22G. PT COMPLAINING OF NAUSEA AND PAIN. ADMINISTERED MORPHINE AND ZOFRAN. PT TOLERATED WELL. WILL CONTINUE TO MONITOR.
--- NOTE | 2018-05-21 03:39 | NUR ---
IV IN RIGHT HAND ACCIDENTLY PULLED BY PT, PT REPORTS THE DRESSING WAS STARTING TO COME OFF SO SHE PULLED IT OFF. NEW IV STARTED ON RIGHT AC, 24 GAUGE. Addendum: 05/22/18 at 0318 by Dodie White RN WRONG DATE. IV IN RIGHT HAND ACCIDENTLY PULLED BY PT, PT REPORTS THE DRESSING WAS STARTING TO COME OFF SO SHE PULLED IT OFF. NEW IV STARTED ON RIGHT AC, 24 GAUGE.
--- NOTE | 2018-05-21 03:39 | NUR ---
PT C/O PAIN 08/06, STATES "MY PAIN IS EVERYWHERE" WILL MEDICATE ACCORDING TO TINO MINA. Addendum: 05/22/18 at 0320 by Dodie White RN WRONG DATE PT C/O PAIN 08/06, STATES "MY PAIN IS EVERYWHERE" WILL MEDICATE ACCORDING TO TINO MINA.
--- NOTE | 2018-05-21 03:48 | NUR ---
PT SLEEPING IN BED. NO SIGNS OF DISTRESS. WILL CONTINUE TO MONITOR.
[2018-05-21 04:04] VITALS: BP 118/75
[2018-05-21] MEDS: LEVOTHYROXINE 0.05 MG TAB PO SCH (05:48)
--- NOTE | 2018-05-21 05:50 | NUR ---
ADMINISTERED MORNING MED TO PT. PT TOLERATED WELL. HELPED PT OUT OF BED TO BATHROOM. ALL NEEDS ARE MET AT THIS TIME WILL CONTINUE TO MONITOR.
--- NOTE | 2018-05-21 07:10 | NUR ---
ENDORSED PT TO DAY SHIFT NURSE FOR CONTINUITY OF CARE. PT IN STABLE CONDITION.
--- NOTE | 2018-05-21 07:11 | NUR ---
RECEIVED REPORT FROM HIGHWAY DESIGN ENGINEER NURSE AT BEDSIDE FOR CONTINUITY OF CARE. PATIENT AWAKE,ALERT AND ORIENTED X4. AMBULATED TO BATHROOM WITH STANDBY ASSIST AND VOIDED. IV IN L HAND 22G SALINE LOCKED, PATENT, INTACT, AND ASYMPTOMATIC. PT ON 2L O2 NC. RESPIRATIONS EVEN AND UNLABORED. SKIN IS INTACT. NO COMPLAINTS OF PAIN AT THIS TIME. UPDATED BOARD. SAFETY PRECAUTION IN PLACE, BED IS IN LOW POSITION, LOCKED WITH SIDE RAILS UP X2. CALL LIGHT WITHIN REACH. WILL CONTINUE TO MONITOR PATIENT.
--- NOTE | 2018-05-21 07:30 | NUR ---
PATIENT REPORTED TO AUTOMOTIVE PARTS INTERPRETER NURSE THAT HER APPOINTMENT AT [facility] ON May AND IT WAS TO REEVALUATE HER MEDICATIONS OR TALK ABOUT POSSIBLE CORONARY ARTERY BYPASS SURGERY. HER CURRENT CHILD SUPPORT INVESTIGATOR IN THE AREA WAS DR. MARCELINO. WILL PASS THIS MESSAGE ALONG TO DR. GORDON.
[2018-05-21 07:54] LABS: BASOPHILS # (AUTO) 0.1 K/uL (0.00-0.22); BASOPHILS % (AUTO) 0.8 % (0.0-2.0); EOSINOPHILS # (AUTO) 0.2 K/uL (0-0.4); EOSINOPHILS % (AUTO) 2.7 % (0.0-4.0); HEMATOCRIT 39.6 % (36-48); HEMOGLOBIN 13.1 g/dL (12.0-16.0); LYMPHOCYTES # (AUTO) 0.9 K/uL (2.5-16.5); LYMPHOCYTES % (AUTO) 14.4 % (20.5-51.1); MEAN CORPUSCULAR HEMOGLOBIN 32 pg (27-31); MEAN CORPUSCULAR HGB CONC 33 g/dL (33-37); MONOCYTES # (AUTO) 0.3 K/uL (0.8-1.0); MONOCYTES % (AUTO) 5.6 % (1.7-9.3); NEUTROPHILS # (AUTO) 4.7 K/uL (1.8-7.7); NEUTROPHILS % (AUTO) 76.5 % (42.2-75.2); PLATELET COUNT (AUTO) 319 K/uL (140-450); RED BLOOD CELL COUNT(AUTO) 4.12 MIL/uL (4.20-5.40); RED CELL DISTRIBUTION WIDTH 14.2 % (11.6-13.7); WHITE BLOOD COUNT (AUTO) 6.2 K/uL (4.8-10.8)
[2018-05-21 08:00] VITALS: BP 100/63
[2018-05-21 08:08] LABS: ANION GAP 11.8 (8-16); CARBON DIOXIDE 29.9 mmol/L (21-32); CREATININE 0.9 mg/dL (0.6-1.3); POTASSIUM 4.7 mmol/L (3.5-5.1)
[2018-05-21 08:16] LABS: CREATINE KINASE MB 0.9 ng/mL (0-3.6)
[2018-05-21] MEDS: METOPROLOL 50 MG TAB PO SCH (09:00)
[2018-05-21] MEDS: SERTRALINE 50 MG TAB PO SCH (09:00)
[2018-05-21] MEDS: ISOSORBIDE DINITRATE 10 MG TAB PO SCH ×3 (09:00→17:14)
[2018-05-21] MEDS: busPIRone 5 MG TAB PO SCH ×2 (09:00→20:59)
[2018-05-21] MEDS: LISINOPRIL 10 MG TAB PO SCH (09:00)
--- NOTE | 2018-05-21 09:10 | NUR ---
DR GORDON IN TO SEE THE PATIENT. WILL WAIT FOR HER UPDATED ORDERS.
[2018-05-21] MEDS ORDERED: NITROGLYCERIN 0.4 MG TAB SL PRN (09:30)
[2018-05-21] MEDS: HYDROcodone/APAP 5/325 MG 1 TAB TAB PO PRN ×2 (09:55→17:14)
[2018-05-21] MEDS: ASPIRIN 81 MG TAB.CHEW PO SCH (09:55)
[2018-05-21] MEDS: CLOPIDOGREL 75 MG TAB PO SCH (09:55)
[2018-05-21] MEDS: ENOXAPARIN 100 MG/ML SYR SUBQ SCH ×2 (09:57→21:04)
--- NOTE | 2018-05-21 09:57 | NUR ---
MORNING MEDICATIONS ADMINISTERED. PATIENT REFUSED BLOOD PRESSURE MEDICATIONS BECAUSE OF LOW BP READING OF 100/63 AT 0800, NEW READING AT 0945 113/53 HR 81. PATIENT C/O GENERALIZED BODY PAIN, EXPLAINING THAT IT WAS DUE TO HER FIBROMYALGIA, RN VERBALIZED UNDERSTANDING AND NORCO PRN GIVEN. PATIENT ALSO REFUSED BUSPIRONE AND ZOLOFT STATING THAT SHE NO LONGER TAKES THOSE MEDICATIONS. RN EDUCATION PATIENT ABOUT HER REFUSAL AND ITS POSSIBLE SIDE EFFECTS. PATIENT VERBALIZED UNDERSTANDING BUT STILL REFUSES. SAFETY PRECAUTION IN PLACE, CALL LIGHT WITHIN REACH, WILL CONTINUE TO MONITOR PATIENT.
--- NOTE | 2018-05-21 10:21 | NUR ---
PATIENT HAS BEEN SCREENED AND CATEGORIZED MODERATE NUTRITION RISK. PATIENT WILL BE SEEN WITHIN 3-5 DAYS OF ADMISSION. 05/23/18 05/25/[address]
[2018-05-21 10:53] LABS: CHOL/HDL RATIO 6.4 (1-4.5)
[2018-05-21 12:00] VITALS: BP 135/75
[2018-05-21] MEDS ORDERED: ALPRAZolam 0.5 MG TAB PO PRN (12:27)
--- NOTE | 2018-05-21 13:18 | NUR ---
CALLED [facility] FOR MEDICAL RECORD FAX NUMBER. PATIENT AUTHORIZATION FOR INFORMATION ABOUT CARDIAC CATH RESULTS FAXED OVER TO [phone]. WILL WAIT FOR THEIR RESULTS BACK.
--- NOTE | 2018-05-21 14:02 | NUR ---
PATIENT C/O CHEST PAIN AND GENERALIZED BODY PAIN, NITRO OFFERED, PATIENT REFUSED, MORPHINE PRN IVP ADMINISTERED. PATIENT NOW RESTING IN BED. NO SIGNS OF DISTRESS OR SOB NOTED ON 2L O2 NC. SAFETY PRECAUTION IN PLACE, CALL LIGHT WITHIN REACH. WILL CONTINUE TO MONITOR PATIENT.
--- NOTE | 2018-05-21 14:41 | NUR ---
[address] [facility] AT [phone] TRANSFER UNIT EXT [phone]. SPOKE WITH XAVI WHO PROVIDED FAX [phone] TO FAX CLINICAL INFORMATION REGARDING PT. INFORMED XAVI THAT I WAS WAITING FOR REPORT OF ANGIOGRAM DONE AT [facility] LAST WEEK. PER XAVI SEND ANY INFORMATION ON PT NOW AND CAN FORWARD ANGIO REPORT WHEN AVAILABLE. ALSO PROVIDED CONTACT NUMBER FOR DR GORDON.
--- NOTE | 2018-05-21 15:37 | NUR ---
Clinical review faxed to Reshma at [facility] at [phone]
[2018-05-21 16:00] VITALS: BP 135/76
--- NOTE | 2018-05-21 16:40 | NUR ---
RECEIVED CALL FROM XAVI FROM [facility]. SHE SAID THAT KATH[facility] A[facility] WILL ACCEPT THE PATIENT. THEY ARE STILL WORKING OUT WHAT BED SHE WILL BE GOING TO BUT TRANSFER IS GOOD TO GO FOR TOMORROW. APPLICATIONS SYSTEMS ANALYST TISH MARADIAGA.
--- NOTE | 2018-05-21 17:14 | NUR ---
PATIENT C/O CHEST PAIN AND GENERALIZED BODY PAIN, NITRO OFFERED, PATIENT REFUSED, BP 135/75 HR 89. NORCO PRN ADMINISTERED. PATIENT NOW RESTING IN BED. NO SIGNS OF DISTRESS OR SOB NOTED ON 2L O2 NC. SAFETY PRECAUTION IN PLACE, CALL LIGHT WITHIN REACH. WILL CONTINUE TO MONITOR PATIENT.
--- NOTE | 2018-05-21 18:30 | NUR ---
PATIENT CALLED, COMPLAINED OF CHEST PAIN, NITRO OFFERED, PATIENT REFUSED, PATIENT REQUESTED FOR MORPHINE, PATIENT LYING DOWN, BP 84/47. RN EDUCATION PATIENT ABOUT LOW BP AND MORPHINE CONTRAINDICATION. PATIENT VERBALIZED UNDERSTANDING WITH KNOWLEDGE THAT RN WILL COME BACK AND RETAKE BP, IF HIGHER, MORPHINE MAY BE GIVEN. SAFETY PRECAUTION IN PLACE, CALL LIGHT WITHIN REACH, WILL CONTINUE TO MONITOR PATIENT.
--- NOTE | 2018-05-21 19:06 | NUR ---
RECEIVED BEDSIDE REPORT FROM DAY SHIFT NURSE HUMAIRA. PT C/O OF PAIN IN CHEST. REFUSED NITROGLYCERIN PT STATES, "IT GIVES ME A HEADACHE". EDUCATION PROVIDED ABOUT USE OF NITROGLYCERIN. PT IV IN LEFT HAND PATENT AND FREE OF S/S OF INFECTION. ON 2 L NC. BED IN LOWEST POSITION, CALL LIGHT WITHIN REACH, WILL MEDICATE WITH MORPHINE ACCORDING TO TINO MINA. UPDATED BOARD. EDUCATED ABOUT PLAN OF CARE.
--- NOTE | 2018-05-21 19:06 | NUR ---
REPORT GIVEN TO BEHAVIORAL PSYCHOLOGIST NURSE AT BEDSIDE FOR CONTINUITY OF CARE. PATIENT IN STABLE CONDITION, C/O CHEST PAIN. ENDORSED TO BEHAVIORAL PSYCHOLOGIST NURSE WITH INFORMATION ABOUT PATIENT'S LOW BLOOD PRESSURE READINGS.
--- NOTE | 2018-05-21 19:47 | NUR ---
PT C/O CHEST PAIN, GEN PAIN AND HEADACHE 09/05, EDUCATE PT REGARDING PAIN, AND NITRO MEDICATION FOR CHEST PAIN, PT REFUSED NITRO, PAIN MEDICATION MORPHINE GIVEN, PT TOLERATED WELL, NO DISTRESS NOTED, CALL LIGHT WITHIN REACH, WILL CONTINUE TO MONITOR.
[2018-05-21 20:00] VITALS: BP 139/68
--- NOTE | 2018-05-21 20:00 | NUR ---
V/S TAKEN, PT TOLERATED WELL, WILL CONTINUE TO MONITOR, CALL LIGHT WITHIN REACH.
[2018-05-21] MEDS: METOPROLOL 25 MG TAB PO SCH (21:00)
[2018-05-21] MEDS: SIMVASTATIN 20 MG TAB PO SCH (21:00)
--- NOTE | 2018-05-21 21:00 | NUR ---
DUE MEDICATIONS GIVEN PT TOLERATED WELL, WILL CONTINUE TO MONITOR, CALL LIGHT WITHIN REACH.
--- NOTE | 2018-05-21 23:15 | NUR ---
PT AMBULATED TO BATHROOM, EDUCATED ABOUT REASON TO KEEP O2 ON. REAPPLIED O2 VIA NC AT 2 L. WILL CONTINUE TO MONITOR. CALL LIGHT WITHIN REACH.
[2018-05-22] VITALS: BP 144/62
[2018-05-22] MEDS: MORPHINE SULFATE 2 MG/ML SYR IVP PRN ×2 (00:39→05:43)
--- NOTE | 2018-05-22 02:50 | NUR ---
PT SLEEPING IN BED, NO SIGNS OF DISTRESS. WILL CONTINUE TO MONITOR. CALL LIGHT WITHIN REACH.
[2018-05-22 04:00] VITALS: BP 113/69
[2018-05-22] MEDS: LEVOTHYROXINE 0.05 MG TAB PO SCH (05:43)
--- NOTE | 2018-05-22 05:46 | NUR ---
PT C/O PAIN 08/06 STATES "PAIN IS EVERYWHERE". WILL MEDICATE AND GIVE DUE MEDICATION. O2 REAPPLIED, BED IN LOWEST POSITION, CALL LIGHT WITHIN REACH.
--- NOTE | 2018-05-22 07:05 | NUR ---
ENDORSED PT TO DAY SHIFT NURSE [place]. PT IS STABLE.
--- NOTE | 2018-05-22 07:06 | NUR ---
RECEIVED REPORT FROM CAPONIZER NURSE AT BEDSIDE FOR CONTINUITY OF CARE. PATIENT AWAKE,ALERT AND ORIENTED X4. COMPLAINING OF GENERALIZED PAIN. IV IN L FOREARM 24G SALINE LOCKED, PATENT, INTACT, AND ASYMPTOMATIC. PT ON 2L O2 NC. RESPIRATIONS EVEN AND UNLABORED. SKIN IS INTACT. UPDATED BOARD. VERBALIZED PLAN OF CARE TO PATIENT. PATIENT VERBALIZED UNDERSTANDING BUT REQUESTING PAIN MEDICATION. RN INFORMED PATIENT THAT NORCO IS DUE, BUT PATIENT REFUSED. PATIENT REQUESTS FOR MORPHINE. NITRO PATCH OFFERED. PATIENT REFUSED STATING THAT IT GIVES HER A HEADACHE. SAFETY PRECAUTION IN PLACE, BED IS IN LOW POSITION, LOCKED WITH SIDE RAILS UP X2. CALL LIGHT WITHIN REACH. WILL CONTINUE TO MONITOR PATIENT.
[2018-05-22 07:15] LABS: BASOPHILS # (AUTO) 0.1 K/uL (0.00-0.22); EOSINOPHILS % (AUTO) 0.8 % (0.0-4.0); LYMPHOCYTES % (AUTO) 16.1 % (20.5-51.1); MEAN CORPUSCULAR HEMOGLOBIN 32 pg (27-31); MEAN CORPUSCULAR HGB CONC 33 g/dL (33-37); MEAN CORPUSCULAR VOLUME 95.9 fL (80-94); MONOCYTES # (AUTO) 0.4 K/uL (0.8-1.0); MONOCYTES % (AUTO) 6.7 % (1.7-9.3); NEUTROPHILS # (AUTO) 4.8 K/uL (1.8-7.7); NEUTROPHILS % (AUTO) 75.4 % (42.2-75.2); PLATELET COUNT (AUTO) 284 K/uL (140-450); RED BLOOD CELL COUNT(AUTO) 3.75 MIL/uL (4.20-5.40); RED CELL DISTRIBUTION WIDTH 14.5 % (11.6-13.7); WHITE BLOOD COUNT (AUTO) 6.4 K/uL (4.8-10.8)
[2018-05-22 08:00] VITALS: BP 135/135
[2018-05-22] MEDS: ISOSORBIDE DINITRATE 10 MG TAB PO SCH ×2 (08:42→13:00)
[2018-05-22] MEDS: CLOPIDOGREL 75 MG TAB PO SCH (08:42)
[2018-05-22] MEDS: ASPIRIN 81 MG TAB.CHEW PO SCH (08:42)
[2018-05-22] MEDS: busPIRone 5 MG TAB PO SCH (08:42)
[2018-05-22] MEDS: ENOXAPARIN 100 MG/ML SYR SUBQ SCH (08:43)
[2018-05-22 08:48] LABS: CREATININE 0.8 mg/dL (0.6-1.3); POTASSIUM 4.8 mmol/L (3.5-5.1)
[2018-05-22] MEDS: LISINOPRIL 10 MG TAB PO SCH (09:00)
[2018-05-22] MEDS: SERTRALINE 50 MG TAB PO SCH (09:00)
[2018-05-22] MEDS: METOPROLOL 25 MG TAB PO SCH (09:00)
[2018-05-22 09:02] LABS: ANION GAP 8.1 (8-16); CARBON DIOXIDE 34.7 mmol/L (21-32)
--- NOTE | 2018-05-22 10:05 | NUR ---
DR GORDON IN TO SEE THE PATIENT. EDUCATED PATIENT ABOUT NITRO AND BENEFITS OF IT ON CHEST PAIN PRIOR TO RECEIVING MORPHINE. PATIENT C/O OF CHEST PAIN AND REQUEST MORPHINE ONLY. WHEN DENIED, COMPLAINS OF GENERALIZED BODY PAIN AND REQUEST FOR MORPHINE. RN EXPLAINED THAT NORCO 5 IS FOR SEVERE PAIN AND IF PATIENT WANTS IT. SHE REPLIED YES. NORCO ADMINISTERED, PATIENT TOLERATED IT WELL.
[2018-05-22] MEDS: HYDROcodone/APAP 5/325 MG 1 TAB TAB PO PRN ×2 (10:08→16:01)
--- NOTE | 2018-05-22 10:17 | NUR ---
PATIENT REQUESTING TO GO AMA BECAUSE SHE IS NOT RECEIVEING THE CARE SHE NEEDS BY RECEIVING MORPHINE Q4H FOR HER PAIN. EXPLAINED TO PATIENT PURPOSE OF MORPHINE AND NITRO FOR CHEST PAIN. PATIENT REQUESTS TO GO AMA. AMA PAPERS SIGNED. RN INFORMED HOUSE CALLS NURSE PRACTITIONER JOWIE AND DR GORDON. DR GORDON CALLED DEAN. DEAN CAME TO FLOOR TO SPEAK TO PATIENT. AFTER SPEAKING TO DEAN, PATIENT DECIDED TO STAY WHEN ASSURED THAT SHE WILL BE TRANSFERRED TO [facility] TODAY. Addendum: 05/22/18 at 2021 by Filipe Novoa RN PATIENT TOOK OFF TELE LEADS AND GOT DRESSED.
--- NOTE | 2018-05-22 10:45 | NUR ---
TELE LEADS BACK ON PATIENT. PATIENT RESTING IN BED.
--- NOTE | 2018-05-22 12:00 | NUR ---
PATIENT REFUSED VITAL SIGNS AND 1300 MEDICATIONS.
--- NOTE | 2018-05-22 12:02 | NUR ---
RECEIVED VM LEFT 05/21/18 4652 FROM JULIAN AT [facility] TRANSFER UNIT THAT DR KATHY WHITLOCK HAD ACCEPTED PT FOR ADMISSION. 0841 CALLED [facility] TRANSFER UN[facility] [phone] AND SPOKE WITH XAVI WHO CONFIRMED THAT PT HAS BEEN ACCEPTED AND THEY ARE WAITING FOR THEIR FINANCIAL DEPARTMENT TO COMMUNICATE WITH [facility] REGARDING AUTH AND FINANCES. 0940 SPOKE WITH SHANNA MCCOY AT [facility] AND OBTAINED AUTH #[id number] FOR [facility] AND AUTH# [id number] FOR [facility]. 1007 CALLED TRANSFER UNIT TO PROVIDE [facility] AUTH NUMBER BUT WAS INFORMED THAT THE [facility] BUSINESS OFFICE HAS THEIR OWN PROCESS AND THEY PREFER TO OBTAIN AUTH DIRECTLY FROM [facility]. WHEN AUTH HAS BEEN OBTAINED THE TRANSFER UNIT WILL CALL [facility].
--- NOTE | 2018-05-22 15:51 | NUR ---
1530 CALLED [facility] TRANSFER UNIT AND SPOKE WITH XAVI WHO TRANSFERRED CALL TO ADMITTING AND SPOKE WITH BRENDA REGARDING STATUS OF [facility] AUTH AND SHE STATED THAT THEY ARE STILL PENDING [facility] AUTH. EXPLAINED TO HER THAT I HAD OBTAINED AN AUTH NUMBER FROM SHANNA HERNANDEZ CM AT [facility] THIS MORNING BUT HAD BEEN INFORMED BY XAVI AT TRANSFER UNIT THAT SHE WAS INFORMED THAT [facility] PREFERS TO OBTAIN THEIR OWN. PROVIDED BRENDA WITH THE AUTH NUMBER AND THE PHONE NUMBER FOR SHANNA HERNANDEZ [facility] [place]. BRENDA STATED SHE WILL FOLLOW UP WITH SHANNA AND THEN NOTIFY TRANSFER UNIT WHEN AUTH OBTAINED.
[2018-05-22] MEDS: ONDANSETRON 4 MG/2 ML VIAL IVP PRN (15:56)
[2018-05-22 16:00] VITALS: BP 137/71
--- NOTE | 2018-05-22 16:00 | NUR ---
PATIENT C/O 10/10 GENERALZED PAIN. NORCO OFFERED, PATIENT ALSO C/O OF NAUSEA, ZOFRAN OFFERED. PATIENT TOOK NORCO AND ZOFRAN, PATIENT TOLERATED THEM WELL. PATIENT INSISTS ON GOING AMA. DEAN CALLED, DEAN STATED THAT SHE HAD RECEIVED INFORMATION AND PATIENT IS NOW CLEAR TO GO TO [facility]. RN VERBALIZED UNDERSTANDING AND MESSAGE PASSED ON TO PATIENT.
--- NOTE | 2018-05-22 16:10 | NUR ---
RECEIVED CALL FROM EMY FROM [facility]. INFORM RN THAT PATIENT WILL BE GOING TO ROOM 5221, CALL [phone] TO GIVE REPORT AND PLEASE TRANSPORT PATIENT [place]. RN VERBALIZED UNDERSTANDING.
--- NOTE | 2018-05-22 16:20 | NUR ---
PATIENT'S MOTHER OLU CALLED TO INFORM HER THAT PATIENT WILL BE GOING TO [facility] TO ROOM 5221. SHE VERBALIZED UNDERSTANDING AND TOLD RN THAT DAMIAN HAD JUST BEEN TH ERE ON April FOR APPOINTMENT WITH HER SUSANA NASSAR, HER DOCTOR AT [facility], PHONE # [phone].
--- NOTE | 2018-05-22 16:45 | NUR ---
REPORT CALLED TO [facility], REPORT RECEIVED BY MIHAI ALBA. PATIENT WILL BE GOING THERE TO ROOM 5221 UNDER THE CARE OF KATHY AUGUST.
--- NOTE | 2018-05-22 17:35 | NUR ---
PATIENT WHEELED OFF FLOOR BY [facility], PATIENT TOOK ALL HER BELONGINGS WITH HER. PATIENT IN STABLE CONDITION.
[2018-05-22] MEDS ORDERED: SIMVASTATIN 20 MG TAB PO SCH (21:00)
== END 2018-05-22 17:30 | disposition short-term general hospital (02) | DRG 198 ==
LOC: MED 14:02 → MTU 17:50
PROVIDERS: ADMIT Hospitalist; ATTEND Hospitalist
DX: I25.110 Atherosclerotic heart disease of native coronary artery with unstable angina pectoris (principal); F11.20 Opioid dependence, uncomplicated; I10 Essential (primary) hypertension; E03.9 Hypothyroidism, unspecified; F32.9 Major depressive disorder, single episode, unspecified; E78.5 Hyperlipidemia, unspecified; E66.9 Obesity, unspecified; I25.2 Old myocardial infarction; Z95.5 Presence of coronary angioplasty implant and graft; Z88.8 Allergy status to other drugs, medicaments and biological substances; Z91.018 Allergy to other foods; Z87.891 Personal history of nicotine dependence; Z90.710 Acquired absence of both cervix and uterus; Z68.36 Body mass index [BMI] 36.0-36.9, adult; Z88.7 Allergy status to serum and vaccine
CPT/HCPCS: 36415; 71045; 80048; 80053; 80305; 81003; 82550; 82553; 83880; 84484; 85025; 85610; 85730; 87081; 93005; 96374; 96375; 99291; G0482; J1650; J1885; J2270; J2405

== ENCOUNTER 2019-01-11 14:25 | Inpatient (IN) | payer OTHER ==
[~2019-01-11] VITALS: Ht 167.6 cm; Wt 112.5 kg
[~2019-01-11 14:25] MED LIST changes: -ACET-2863 PO; +HYDR-5123 PO; -LOSA50TA39 PO; +LOSA50TA66 PO; +NITR1PAT TD; -[UNRECOGNIZED DRUG - CODE] TD
[2019-01-11 14:26] VITALS: BP 113/66
--- NOTE | 2019-01-11 14:26 | NUR ---
PT BIB [facility] TO ER BED 3
[2019-01-11] MEDS ORDERED: KETOROLAC 30 MG/ML VIAL IVP ONE (14:45)
--- NOTE | 2019-01-11 14:58 | NUR ---
PT C/O CHEST PAIN X3 DAYS AGO, WAS GIVEN 324MG ASPIRIN AND 4MG ZOFRAN ODT BY EMS. NO RELIEF. PATIENT STATES PAIN OF 8/10 AT THIS TIME; VSS; PATIENT POSITIONED FOR COMFORT; HOB ELEVATED; BEDRAILS UP X2; BED DOWN. ER MD MADE AWARE OF PT STATUS.
[2019-01-11 15:07] LABS: BASOPHILS % (AUTO) 0.5 % (0.0-2.0); EOSINOPHILS % (AUTO) 0.5 % (0.0-4.0); HEMATOCRIT 44.7 % (36-48); HEMOGLOBIN 14.5 g/dL (12.0-16.0); LYMPHOCYTES # (AUTO) 2.2 K/uL (2.5-16.5); LYMPHOCYTES % (AUTO) 29.8 % (20.5-51.1); MEAN CORPUSCULAR HEMOGLOBIN 30 pg (27-31); MEAN CORPUSCULAR HGB CONC 33 g/dL (33-37); MEAN CORPUSCULAR VOLUME 92.6 fL (80-94); MONOCYTES # (AUTO) 0.5 K/uL (0.8-1.0); NEUTROPHILS # (AUTO) 4.7 K/uL (1.8-7.7); NEUTROPHILS % (AUTO) 62.2 % (42.2-75.2); PLATELET COUNT (AUTO) 257 K/uL (140-450); RED BLOOD CELL COUNT(AUTO) 4.82 MIL/uL (4.20-5.40); RED CELL DISTRIBUTION WIDTH 14.4 % (11.6-13.7); WHITE BLOOD COUNT (AUTO) 7.5 K/uL (4.8-10.8)
[2019-01-11] MEDS ORDERED: MORPHINE SULFATE 4 MG/ML SYR IVP ONE (15:25)
[2019-01-11] MEDS ORDERED: ONDANSETRON 4 MG/2 ML VIAL IVP ONE (15:25)
[2019-01-11 15:29] LABS: ALBUMIN 3.4 g/dL (3.4-5.0); ANION GAP 9.8 (8-16); CARBON DIOXIDE 30.2 mmol/L (21-32); CREATININE 0.8 mg/dL (0.6-1.3)
[2019-01-11 15:48] LABS: PROTHROMBIN TIME 13.5 secs (10.8-13.4)
[2019-01-11 15:59] LABS: TOTAL BILIRUBIN 0.5 mg/dL (0.0-1.0)
--- NOTE | 2019-01-11 16:15 | NUR ---
PT RESTING, VSS. WILL CONTINUE TO MONITOR.
[2019-01-11] MEDS ORDERED: ACETAMINOPHEN 325 MG TAB PO PRN (16:25)
[2019-01-11] MEDS ORDERED: ALUMINUM HYD/MAG/SIMETHICONE 30 ML UDC PO PRN (16:25)
[2019-01-11] MEDS ORDERED: MORPHINE SULFATE 2 MG/ML SYR IVP PRN (16:25)
[2019-01-11] MEDS ORDERED: NITROGLYCERIN 0.4 MG TAB SL PRN (16:25)
[2019-01-11] MEDS ORDERED: LORazepam 1 MG TAB PO PRN (16:25)
[2019-01-11] MEDS ORDERED: HYDROcodone/APAP 5/325 MG 1 TAB TAB PO PRN (16:25)
[2019-01-11] MEDS ORDERED: ZOLPIDEM 5 MG TAB PO PRN (16:25)
[2019-01-11] MEDS ORDERED: RANEX500 PO (16:43)
[2019-01-11] MEDS ORDERED: ALPR2TAB1 PO (16:43)
[2019-01-11] MEDS ORDERED: METO25TA14 PO (16:43)
[2019-01-11] MEDS ORDERED: ISOS20TA13 PO (16:43)
[2019-01-11] MEDS ORDERED: CLOP75TA26 PO (16:43)
[2019-01-11 17:10] LABS: CHOL/HDL RATIO 2.5 (1-4.5)
--- NOTE | 2019-01-11 17:50 | NUR ---
Patient will be admitted to care of DR. GOLDMAN. Admited to TELE. Will go to room 119A. Belongings list completed. Report to OVIDIO LEONG.
--- NOTE | 2019-01-11 17:50 | NUR ---
RECEIVED REPORT FORM ER NURSE AT BEDSIDE. PT ADMITTED WITH DX OF R/O ACS, WITH CHEST COMPLAIN OF CHEST PAIN. PT HAS LFT AC 22G, HEP LOCK. PT VS STABLE AT THIS TIME. VS RECORDED T 98.6, BP 130/51, O2 65% ON O2 @2LPM VIA NC. HR 63, RR 18. NO SIGN OF DISTRESS NOTED. PT COMPLAINING OF CHEST PAIN. RECEIVED MORPHINE IN ER AT 1510. COMPLAINING OF NAUSEA. PT DINNER AT BEDSIDE, ATE A LITTLE AMOUNT STATES WANTS TO SLEEP AT THIS TIME. CALL LIGHT WITHIN PT REACH. INFORMED HER TO USE CALL LIGHT FOR AY HELP. VERBALIZED UNDERSTANDING. WILL CONTINUE TO MONITOR PT.
--- NOTE | 2019-01-11 18:25 | NUR ---
CHECKED ON PT. SLEEPING AT THIS TIME. NO SIGN OF DISTRESS NOTED. WILL CONTINUE TO MONITOR PT.
--- NOTE | 2019-01-11 18:50 | NUR ---
CHECKED ON PT. SLEEPING COMFORTABLY. WILL CONTINUE TO MONITOR PT.
--- NOTE | 2019-01-11 19:27 | NUR ---
ENDORSED PT TO PM NURSE AT BEDSIDE. PT IN STABLE CONDITION.
--- NOTE | 2019-01-11 19:28 | NUR ---
RECEIVED REPORT FROM GARRICK RN DAYSHIFT NURSE AT BEDSIDE FOR CONTINUITY OF CARE,PT IN STABLE CONDITION.
[2019-01-11 19:30] VITALS: BP 117/50
[2019-01-11] MEDS: ONDANSETRON 4 MG/2 ML VIAL IVP PRN (20:43)
--- NOTE | 2019-01-11 20:45 | NUR ---
PT LYING IN LOW BED WITH SIDE RAILS UP X2 AND CALL ABEL IN REACH. PT C/O 7/10 CHEST PAIN AND NAUSEA. PT GIVEN IVP PRN MORPHINE ORDERED.PT ALSO GIVEN IVP PRN ZOFRAN FOR NAUSEA. WILL MONITOR FOR EFFECT.
[2019-01-11] MEDS ORDERED: METOPROLOL 25 MG TAB PO SCH (21:00)
[2019-01-11] MEDS ORDERED: SIMVASTATIN 20 MG TAB PO SCH (21:00)
[2019-01-12] VITALS: BP 103/41
[2019-01-12] MEDS: ONDANSETRON 4 MG/2 ML VIAL IVP PRN (00:57)
--- NOTE | 2019-01-12 01:15 | NUR ---
PT IN BED RESTING WITH EYES CLOSED. PT DID NOT HAVE N/C WAS OFF NOSE. PT AWOKEN BY NAME AND LIGHT TOUCH. PT WAS PUT BACK ON N/C RUNNING AT 2LITERS. PT HAD NO C/O OF PAIN , HOWEVER DID SAY THAT SHE WAS STARTING TO FEEL NAUSEA AGAIN. PT GIVEN IVP/PRN ZOFRAN, WILL MONITOR FOR EFFECT. V/S T 96.8 P 56 R 18 B/P 103/41 02 97% ON R/A. SAPNA CONTINUE TO MONITOR FOR EFFECT.
--- NOTE | 2019-01-12 02:35 | NUR ---
PT SLEEPING IN BED NO S/S OF PAIN OR DISTRESS NOTED.
[2019-01-12 04:00] VITALS: BP 125/62
--- NOTE | 2019-01-12 04:03 | NUR ---
PT C/ OF ITCHINESS CALLED [facility], DR. MCCAIN [facility]. NEW ORDERED NOTED FOR PO/PRN BENADRYL 25MG Q 6 PRN.
--- NOTE | 2019-01-12 04:30 | NUR ---
PT GIVEN PO/PRN BENADRYL FOR ITCHINESS. WILL MONITOR FOR EFFECT.
--- NOTE | 2019-01-12 05:00 | NUR ---
PT IN BED NO S/S OF PAIN OR DISTRESS NOTED. V/S FOLLOWS T 97.0 P 60 R 18 B/P 125/62 02 98% ON R/A. PT DENIES PAIN AT THHIS TIME. NO C/O OF ITCHINESS NOTED.
[2019-01-12 07:13] LABS: BASOPHILS # (AUTO) 0.1 K/uL (0.00-0.22); BASOPHILS % (AUTO) 0.7 % (0.0-2.0); EOSINOPHILS # (AUTO) 0.2 K/uL (0-0.4); EOSINOPHILS % (AUTO) 1.7 % (0.0-4.0); HEMATOCRIT 45.6 % (36-48); HEMOGLOBIN 14.6 g/dL (12.0-16.0); LYMPHOCYTES # (AUTO) 1.6 K/uL (2.5-16.5); MEAN CORPUSCULAR HEMOGLOBIN 30 pg (27-31); MEAN CORPUSCULAR HGB CONC 32 g/dL (33-37); MEAN CORPUSCULAR VOLUME 94.4 fL (80-94); MONOCYTES # (AUTO) 0.7 K/uL (0.8-1.0); MONOCYTES % (AUTO) 7.5 % (1.7-9.3); NEUTROPHILS % (AUTO) 73.1 % (42.2-75.2); PLATELET COUNT (AUTO) 192 K/uL (140-450); RED BLOOD CELL COUNT(AUTO) 4.83 MIL/uL (4.20-5.40); RED CELL DISTRIBUTION WIDTH 14.9 % (11.6-13.7); WHITE BLOOD COUNT (AUTO) 9.5 K/uL (4.8-10.8)
--- NOTE | 2019-01-12 07:15 | NUR ---
REPORT GIVEN TO JULIAN HILL RN DAYSHIFT NURSE AT BEDSIDE FOR CONTINUITY OF CARE, PT IN STABLE CONDITION.
--- NOTE | 2019-01-12 07:28 | NUR ---
PT STATES SHE REFUSED CPAP OVERNIGHT
--- NOTE | 2019-01-12 07:30 | NUR ---
RECEIVED BEDSIDE REPORT FROM DANG DE GUZMAN. PT STABLE, AWAKE, AND ALERT. NO SIGNS OF DISTRESS NOTED. DENIES PAIN OR SOB. NO REDNESS, SWELLING, OR INFLAMMATION NOTED ON IV SITE. BED IN LOW POSITION. CALL LIGHT WITHIN REACH. PLAN OF CARE REVIEWED.
[2019-01-12 07:36] LABS: ALBUMIN 3.2 g/dL (3.4-5.0); ANION GAP 7.1 (8-16); CARBON DIOXIDE 30.2 mmol/L (21-32); CREATININE 0.8 mg/dL (0.6-1.3); POTASSIUM 4.3 mmol/L (3.5-5.1); TOTAL BILIRUBIN 0.8 mg/dL (0.0-1.0)
[2019-01-12 08:00] VITALS: BP 141/55
--- NOTE | 2019-01-12 08:15 | NUR ---
DR. WOODS AT THE BEDSIDE. PT WANTS TO LEAVE AMA. DR WOODS SPOKE WITH PATIENT. PT SIGNED AMA FORM. PT STABLE AND AMBULATORY. A&O X4. DISCONTINUED IV, CATHETER TIP INTACT, BLEEDING CONTROLLED. ESCORTED PT TO THE LOBBY.
--- NOTE | 2019-01-12 08:42 | NUR ---
PATIENT HAS BEEN SCREENED AND CATEGORIZED MODERATE NUTRITION RISK. PATIENT WILL BE SEEN WITHIN 3-5 DAYS OF ADMISSION. 01/13/19-01/15/[address]
[2019-01-12] MEDS ORDERED: ASPIRIN 81 MG TAB.CHEW PO SCH (09:00)
[2019-01-12] MEDS ORDERED: CLOPIDOGREL 75 MG TAB PO SCH (09:00)
--- NOTE | 2019-01-14 10:23 | NUR ---
CALLED DR. PRAMOD MARS'S OFFICE AND SPOKE WITH TOMAS. [phone]. I MADE AN APPOINTMENT FOR AT 10:45 A.M. [id number] [facility] [address] [place]. I CALLED THE PATIENT AT HOME, AND INFORMED HER OF THE DATE , TIME AND PLACE AND PHONE FOR HER APPOINTMENT.
== END 2019-01-12 08:30 | disposition left against medical advice (07) | DRG 243 ==
LOC: MED 14:25 → MTU 16:33
PROVIDERS: ADMIT Hospitalist; ATTEND Hospitalist
DX: K21.9 Gastro-esophageal reflux disease without esophagitis (principal); E66.01 Morbid (severe) obesity due to excess calories; I48.1 Persistent atrial fibrillation; I25.10 Atherosclerotic heart disease of native coronary artery without angina pectoris; E03.9 Hypothyroidism, unspecified; E78.5 Hyperlipidemia, unspecified; F32.9 Major depressive disorder, single episode, unspecified; I10 Essential (primary) hypertension; F41.9 Anxiety disorder, unspecified; M79.7 Fibromyalgia; G47.30 Sleep apnea, unspecified; G47.33 Obstructive sleep apnea (adult) (pediatric); Z91.19 Patient's noncompliance with other medical treatment and regimen; Z53.21 Procedure and treatment not carried out due to patient leaving prior to being seen by health care provider; I25.2 Old myocardial infarction; Z88.8 Allergy status to other drugs, medicaments and biological substances; Z85.42 Personal history of malignant neoplasm of other parts of uterus; Z90.710 Acquired absence of both cervix and uterus; Z98.61 Coronary angioplasty status; Z68.41 Body mass index [BMI] 40.0-44.9, adult
CPT/HCPCS: 36415; 71045; 80053; 83880; 84484; 85025; 85610; 85730; 87081; 93005; 96374; 96375; 99285; J1885; J2270; J2405; Q0092; Q0163